=== PATIENT | male | born 1955 | race Caucasian/White ===

== ENCOUNTER 2018-06-01 11:42 | Day surgery (SDC) | payer BC ==
[2018-06-01] MEDS ORDERED: LACTATED RINGERS 1,000 ML IV ONE ×2 (12:40→16:00)
[2018-06-01] MEDS ORDERED: ceFAZolin 1 GM VIAL ONE (13:09)
[2018-06-01] MEDS ORDERED: SODIUM CHLORIDE 0.9% 10 ML ONE ×2 (13:09→15:01)
[2018-06-01] MEDS ORDERED: LIDOCAINE MPF 1%-EPI 1:200000 30 ML VIAL ONE (13:10)
[2018-06-01] MEDS ORDERED: BUPIVACAINE 0.5% PF 30 ML VIAL ONE (13:10)
--- NOTE | 2018-06-01 13:45 | ANESTHESIA ---
Pre-Anesthesia VS, & Labs - Diagnosis umbilical hernia, supra-umbilical ventral hernia - Procedure open umbilical hernia repair, supra-umbilical hernia (ventral) repair with mesh Vital Signs: Temp Pulse Resp BP Pulse Ox 36.2 C L 44 L 20 138/84 H 100 06/01/18 12:20 06/01/18 12:20 06/01/18 12:20 06/01/18 12:20 06/01/18 12:20 Height 6 ft Weight (kg) 82.9 kg - NPO >8 hours Home Medications and Allergies Home Medications: Ambulatory Orders Latanoprost 0.005% Ophth Drops [Xalatan Ophth Drops] 1 drops OP DAILY 06/01/18 Timolol 0.25% Ophth Drops [Timoptic 0.25% Ophth Drops] 1 drops OP DAILY 06/01/18 Latanoprost 0.005% Ophth Drops [Xalatan Ophth Drops] 1 drops OP DAILY 06/01/18 Timolol 0.25% Ophth Drops [Timoptic 0.25% Ophth Drops] 1 drops OP DAILY 06/01/18 Allergies/Adverse Reactions: Allergies Allergy/AdvReac Type Severity Reaction Status Date / Time No Known Drug Allergies Allergy Verified 06/01/18 12:44 Anes History & Medical History - Anesthetic History Anesthesia Complications: reports: No previous complications - Medical History Cardiovascular: reports: None Pulmonary: reports: None Gastrointestinal: reports: None Urinary: reports: None Musculoskeletal: reports: None Endocrine/Autoimmune: reports: None Skin: reports: None - Surgical History General: Colonoscopy Eyes Ears Nose Throat (EENT): Other (retinal detachment surgery) Exam General: Alert Dental: WNL Mouth Opening: Greater than 4 Fingerbreadths Neck Mobility: Normal Mallampati classification: I Thyromental Distance: greater than 6 cm Respiratory: Lungs clear Cardiovascular: Regular rate Mental/Cognitive Status: Alert/Oriented X3 Plan Anesthesia Type: General (backup general), MAC Consent for Procedure(s) Verified and Reviewed: Yes Code Status: Attempt Resuscitation ASA classification: 1-Healthy patient Is this case an emergency?: No
[2018-06-01] MEDS ORDERED: ceFAZolin 2 GM/50 ML 2 GM/50 ML BAG IV ONE (13:51)
[2018-06-01] MEDS ORDERED: BUPIVACAINE 0.5%-EPI 1:200000 PF 30 ML VIAL ONE (14:25)
[2018-06-01] MEDS ORDERED: LIDOCAINE 1% 50 ML MDV ONE (14:57)
[2018-06-01] MEDS ORDERED: ONDANSETRON 4 MG/2 ML VIAL IVP ONE (15:00)
[2018-06-01] MEDS ORDERED: KETOROLAC 30 MG/ML VIAL IVP ONE (15:00)
[2018-06-01] MEDS ORDERED: LIDOCAINE-MPF 2% 5 ML VIAL IM ONE (15:00)
[2018-06-01] MEDS ORDERED: fentaNYL 100 MCG/2 ML VIAL IVP ONE (15:00)
[2018-06-01] MEDS ORDERED: PROPOFOL 200 MG/20 ML VIAL IVP ONE (15:00)
[2018-06-01] MEDS ORDERED: DEXAMETHASONE 4 MG/ML VIAL IVP ONE (15:00)
[2018-06-01] MEDS ORDERED: MIDAZOLAM 2 MG/2 ML VIAL IVP ONE (15:00)
[2018-06-01] MEDS ORDERED: ceFAZolin 1 GM VIAL IR ONE (15:14)
[2018-06-01] MEDS ORDERED: BUPIVACAINE 0.5%-EPI 1:200000 PF 30 ML VIAL SUBQ ONE ×2 (15:15)
[2018-06-01] MEDS ORDERED: LIDOCAINE 1% 50 ML MDV SUBQ ONE (15:46)
--- NOTE | 2018-06-01 16:17 | XRAY Report ---
Reason: NEEDLE/SPONGE COUNT INCORRECT Procedure Date: 06/01/2018 Accession Number: [id number] / [id number] Procedure: XR - Abdomen 1 View X-Ray CPT Code: 99365 FULL RESULT: EXAM: ABDOMEN RADIOGRAPHY EXAM DATE: 06/01/2018 04:12 PM. CLINICAL HISTORY: NEEDLE/SPONGE COUNT INCORRECT. COMPARISON: None. TECHNIQUE: 1 view. FINDINGS: Bowel Gas Pattern: A single image was obtained of the central lower abdomen from the mid L1 level to the lower sacrum. No foreign body seen within this field of view Other: None. IMPRESSION: No foreign body seen within the central lower abdomen RADIA The call report notification system was initiated by Dr. Levi Gramajo at 04:16 PM hrs on 06/01/2018. ADDENDUM: 06/01/18 16:18 The above findings were discussed with Dr. Rodrigo Springer Dr by Dr. Levi Gramajo at 04:18 PM hrs on 06/01/2018.
[2018-06-01] MEDS ORDERED: ACETAMINOPHEN 325 MG TABLET PO PRN (16:20)
[2018-06-01] MEDS ORDERED: oxyCODONE 5 MG TABLET PO PRN (16:20)
[2018-06-01] MEDS ORDERED: ONDANSETRON 4 MG/2 ML VIAL IVP PRN (16:20)
[2018-06-01] MEDS ORDERED: IBUPROFEN 600 MG TABLET PO PRN (16:20)
[2018-06-01] MEDS ORDERED: oxyCODONE 5 MG TABLET ONE (17:00)
[2018-06-01 17:17] VITALS: BP 131/79
--- NOTE | 2018-06-02 03:14 | OPERATIVE REPORT ---
DATE OF SERVICE: 06/01/2018 Physician: Rodrigo Springre MD PREOPERATIVE DIAGNOSES 1. Incarcerated ventral hernia. 2. Reducible umbilical hernia. POSTOPERATIVE DIAGNOSES 1. Incarcerated ventral hernia. 2. Reducible umbilical hernia. PROCEDURE 1. Open repair of incarcerated ventral hernia. 2. Open repair of umbilical hernia with Ventralex ST soft tissue patch. ANESTHESIA: Local plus monitored anesthesia care by Ramses Rosenberg CRNA. SURGEON: Rodrigo Springer MD. GLOBAL LOGISTICS MANAGER: None. ESTIMATED BLOOD LOSS: 10 mL COMPLICATIONS: None. FINDINGS: Two adjacent ventral midline supraumbilical fascial defects were present, measuring 5 mm i n diameter each, through which preperitoneal fat had herniated and become incarcerated, creating a ma ss of approximately 3 to 4 cm in diameter. In addition, an umbilical hernia was present with a fasci al defect of approximately 2 cm and preperitoneal fat present, comprising the hernia sac. INDICATIONS: Patient is a 63-year-old gentleman with recent onset of a mass in the supraumbilical re gion, just off the midline to the left. Examination showed a reducible soft mass consistent with a c hronically incarcerated ventral hernia. He was also noted to have a reducible umbilical hernia. He was interested in having both hernias repaired. TECHNIQUE: After informed consent, patient was taken to the operating room where he was sedated and monitored. Preoperative preparation included administration of 2 grams of cefazolin intravenously an d application of sequential calf compression boots. His abdomen was clipped and prepared with Chlora Prep solution and draped in the usual sterile fashion. A field block was instituted using a 50:50 co mbination of 1% lidocaine plain and 0.5% Marcaine with epinephrine, a total of 30 mL of the mixture w as used. A curvilinear transverse incision was made just above the umbilicus and just caudal to the mass and c arried down through subcutaneous tissues. Hemostasis achieved with electrocautery and 2-0 Vicryl tie s. The umbilical dermis was dissected off the underlying hernia sac and the fascial edges were mobil ized circumferentially around the umbilical fascial defect. The hernia sac was excised and discarded . Dissection in a cephalad manner exposed 2 adjacent midline fascial defects through which preperito yousuf fat had herniated and incarcerated. This tissue was mobilized circumferentially. The anterior fascia was mobilized around the neck of the 2 defects. The tissue was amputated. Hemostasis was ach ieved with electrocautery and 2-0 Vicryl ties and the tissue was discarded. The 2 supraumbilical mid line fascial defects were reapproximated with 2 interrupted 0 Ethibond sutures transversely. The umb ilical defect was repaired by inserting a [address] patch that had been soaked in an tibiotic solution containing 1 gram of cefazolin per liter. It was placed in a preperitoneal positio n and held in place while the fascial edges were reapproximated transversely with interrupted 0 Ethib ond sutures. The sutures incorporated the anchoring strap of the patch. Excess strap was excised an d discarded. After hemostasis was assured, the wound was irrigated with antibiotic solution, following which wound closure was accomplished in layers using interrupted 2-0 Vicryl to reapproximate deep subcutaneous t issues and reapproximate the umbilical dermis to the anterior fascia. Then, 3-0 Vicryl was used to r eapproximate superficial subcutaneous tissues and 4-0 Monocryl completed wound closure with a subcuti cular skin closure, followed by Dermabond. The procedure was then terminated. Sponge counts were co rrect. Needle counts were incorrect by one. A KUB of the abdomen was obtained and no foreign bodies were noted. Anesthesia then terminated, and patient transferred out of the operating room in satisf actory condition. No drains were used. TD: 06/01/2018 16:38
== END 2018-06-01 11:43 | disposition home or self-care (01) ==
LOC: SDS 11:42
PROVIDERS: ATTEND Internal Medicine Gastroenterology
PROC: 0WUF0JZ Supplement Abdominal Wall with Synthetic Substitute, Open Approach (ICD-10-PCS; 2018-06-01)
PROC: 0WQF0ZZ Repair Abdominal Wall, Open Approach (ICD-10-PCS; principal; 2018-06-01 12:45)
DX: K43.6 Other and unspecified ventral hernia with obstruction, without gangrene (principal); K42.9 Umbilical hernia without obstruction or gangrene; J31.0 Chronic rhinitis
CPT/HCPCS: 49561; 49585; 74018; A9270; C1781; J0690; J7120

== ENCOUNTER 2020-02-12 08:00 | Outpatient (CLI) | payer BC ==
--- NOTE | 2020-02-12 14:14 | XRAY Report ---
PROCEDURE: Chest 2 View X-Ray INDICATIONS: WHEEZING TECHNIQUE: 2 view(s) of the chest. COMPARISON: None. FINDINGS: Surgical changes and devices: None. Lungs and pleura: No pleural effusions or pneumothorax. Lungs are clear. Mediastinum: Mediastinal contours are normal. Heart size is normal. Bones and chest wall: No suspicious bony abnormalities. Soft tissues appear unremarkable. IMPRESSION: Chest without acute cardiopulmonary abnormalities or focal airspace disease. Reviewed by: Bhavik Coats MD on 02/12/2020 2:12 PM PDT Approved by: Bhavik Coats MD on 02/12/2020 2:12 PM PDT Station ID: [id number]
== END 2020-02-12 23:59 | disposition home or self-care (01) ==
LOC: DI.S 08:00
PROVIDERS: ATTEND Physician Assistant
DX: R06.2 Wheezing (principal); Z20.828 Contact with and (suspected) exposure to other viral communicable diseases
CPT/HCPCS: 71046

== ENCOUNTER 2020-02-12 08:00 | Outpatient (CLI) | payer BC | END 2020-02-12 23:59 | disposition home or self-care (01) | LOC: LAB.R 08:00 | PROVIDERS: ATTEND Physician Assistant | DX: R06.2 Wheezing (principal); Z20.828 Contact with and (suspected) exposure to other viral communicable diseases ==

== ENCOUNTER 2020-05-18 11:30 | Outpatient (CLI) | payer BC ==
[2020-05-18 11:44] LABS: BASOPHILS % (AUTO) 0.7 %; EOSINOPHILS # (AUTO) 0.6 10^3/uL (0.0-0.7); EOSINOPHILS % (AUTO) 10.1 %; HGB - HEMOGLOBIN 15.7 g/dL (14.0-18.0); LYMPHOCYTES # (AUTO) 1.9 10^3/uL (1.5-3.5); LYMPHOCYTES % (AUTO) 31.7 %; MEAN CORPUSCULAR HEMOGLOBIN 32.3 pg (27.0-31.0); MEAN CORPUSCULAR HGB CONC 34.7 g/dL (32.0-36.0); MEAN PLATELET VOLUME 9.2 fL (7.4-11.4); MONOCYTES # (AUTO) 0.7 10^3/uL (0.0-1.0); MONOCYTES % (AUTO) 11.5 %; NEUTROPHILS # (AUTO) 2.7 10^3/uL (1.5-6.6); NEUTROPHILS % (AUTO) 45.8 %; PLT - PLATELET COUNT 207 10^3/uL (130-450); RED BLOOD COUNT 4.86 10^6/uL (4.70-6.10); RED CELL DISTRIBUTION WIDTH 11.9 % (12.0-15.0); WHITE BLOOD COUNT 5.8 x10^3/uL (4.8-10.8)
[2020-05-18 11:58] LABS: ALBUMIN 4.3 g/dL (3.2-5.5); ALBUMIN/GLOBULIN RATIO 1.4 (1.0-2.2); CALCIUM 9.4 mg/dL (8.5-10.3); CREATININE 0.9 mg/dL (0.6-1.2); TOTAL PROTEIN 7.3 g/dL (6.7-8.2)
== END 2020-05-18 11:31 | disposition home or self-care (01) ==
LOC: LAB 11:30
PROVIDERS: ATTEND Otolaryngology Otolaryngology/Facial Plastic Surgery
DX: Z01.812 Encounter for preprocedural laboratory examination (principal)
CPT/HCPCS: 36415; 80053; 85025

== ENCOUNTER 2020-05-18 15:07 | Outpatient (CLI) | payer BC | END 2020-05-18 15:08 | disposition home or self-care (01) | LOC: RT 15:07 | PROVIDERS: ATTEND Otolaryngology Otolaryngology/Facial Plastic Surgery | DX: Z01.818 Encounter for other preprocedural examination (principal); J34.2 Deviated nasal septum | CPT/HCPCS: 36415; 80053; 85025; 93005 ==

== ENCOUNTER 2022-02-25 08:00 | Outpatient (CLI) | payer BC ==
--- NOTE | 2022-02-25 16:38 | XRAY Report ---
PROCEDURE: Chest 2 View X-Ray INDICATIONS: COUGH TECHNIQUE: 2 view(s) of the chest. COMPARISON: None. FINDINGS: Surgical changes and devices: None. Lungs and pleura: No pleural effusions or pneumothorax. Lungs are clear. Mediastinum: Mediastinal contours are normal. Heart size is normal. Bones and chest wall: No suspicious bony abnormalities. Soft tissues appear unremarkable. IMPRESSION: No acute cardiopulmonary pathology. Reviewed by: Velasquez Menard MD on 02/25/2022 4:37 PM PDT Approved by: Velasquez Menard MD on 02/25/2022 4:37 PM PDT Station ID: [id number]
== END 2022-02-25 23:59 | disposition home or self-care (01) ==
LOC: DI.S 08:00
PROVIDERS: ATTEND Physician Assistant
DX: R05.9 Cough, unspecified (principal)

== ENCOUNTER 2022-03-08 07:36 | Day surgery (SDC) | payer BC ==
[~2022-03-08 07:36] MED LIST: CEFAZOLIN 2G/50ML 0.9% NS 2 GM/50 ML BAG IV ONE
[2022-03-08] MEDS ORDERED: LACTATED RINGERS 1,000 ML IV ONE ×3 (07:53→11:00)
[2022-03-08] MEDS ORDERED: BUPIVACAINE 0.25% PF 10 ML VIAL ONE (08:37)
[2022-03-08] MEDS ORDERED: LIDOCAINE 1% 50 ML MDV ONE (08:37)
[2022-03-08] MEDS ORDERED: PROPOFOL 500 MG/50 ML 500 MG/50 ML VIAL ONE (09:18)
[2022-03-08] MEDS ORDERED: PROPOFOL 200 MG/20 ML VIAL IVP ONE (09:20)
--- NOTE | 2022-03-08 09:20 | ANESTHESIA ---
Pre-Anesthesia VS, & Labs - Diagnosis inguinal hernia - Procedure inguinal hernia repair Vital Signs: Temp Pulse Resp BP Pulse Ox O2 Flow Rate 36.4 C L 64 20 159/83 H 100 03/08/22 07:54 03/08/22 07:54 03/08/22 07:54 03/08/22 07:54 03/08/22 07:54 Height: 6 ft Weight (kg): 78 kg Body Mass Index: 23.3 BMI Classification: Normal - NPO >8 hours Home Medications and Allergies Home Medications: Ambulatory Orders Budesonide/Formoterol Fumarate [Symbicort 160-4.5 Mcg Inhaler] 1 puffs IH DAILY 03/08/22 Latanoprost 0.005% Ophth Drops [Xalatan Ophth Drops] 1 drops EACHEYE QPM 06/01/18 Timolol 0.25% Ophth Drops [Timoptic 0.25% Ophth Drops] 1 drops EACHEYE BID 06/01/18 Budesonide/Formoterol Fumarate [Symbicort 160-4.5 Mcg Inhaler] 1 puffs IH DAILY 03/08/22 Allergies/Adverse Reactions: Allergies Allergy/AdvReac Type Severity Reaction Status Date / Time No Known Drug Allergies Allergy Verified 06/01/18 12:44 Anes History & Medical History - Anesthetic History Anesthesia Complications: reports: No previous complications, Difficult airway Family history of Anesthesia Complications: Denies Family history of Malignant Hyperthermia: Denies - Medical History Cardiovascular: reports: None Pulmonary: reports: None Gastrointestinal: reports: None Urinary: reports: None Musculoskeletal: reports: Other Endocrine/Autoimmune: reports: None Skin: reports: Eczema - Surgical History General: reports: Colonoscopy Eyes Ears Nose Throat (EENT): reports: Cataracts, Detached retina repair, Other Exam General: Alert, Oriented x3, Cooperative Dental: WNL Mouth Openin Fingerbreadth Neck Mobility: Normal Mallampati classification: II Respiratory: Lungs clear Cardiovascular: Regular rate Plan Anesthesia Type: Total IV Consent for Procedure(s) Verified and Reviewed: Yes Code Status: Attempt Resuscitation ASA classification: 2-Mild systemic disease Is this case an emergency?: No
[2022-03-08] MEDS ORDERED: DEXAMETHASONE 4 MG/ML VIAL ONE (09:23)
[2022-03-08] MEDS ORDERED: ONDANSETRON 4 MG/2 ML VIAL ONE (09:23)
[2022-03-08] MEDS ORDERED: fentaNYL 100 MCG/2 ML VIAL ONE (09:23)
[2022-03-08] MEDS ORDERED: MIDAZOLAM 2 MG/2 ML VIAL ONE (09:23)
[2022-03-08] MEDS ORDERED: BUPIVACAINE 0.25% PF 10 ML VIAL SUBQ ONE (10:05)
[2022-03-08] MEDS ORDERED: LIDOCAINE 1% 50 ML MDV SUBQ ONE (10:05)
[2022-03-08] MEDS ORDERED: HYDROcod/ACETAM 5/325 MG TABLET PO PRN (11:04)
[2022-03-08 11:33] VITALS: BP 120/83
--- NOTE | 2022-03-08 13:06 | ANESTHESIA POST OP EVALUATION ---
Anesthesia Post Eval - Post Anesthesia Eval Vitals: Last Vital Signs Temp 37 C 03/08/22 11:32 Pulse 53 L 03/08/22 11:32 Resp 12 03/08/22 11:32 BP 120/83 H 03/08/22 11:32 Pulse Ox 98 03/08/22 11:32 O2 Flow Rate CV Function Including HR & BP: Stable Pain Control: Satisfactory Nausea & Vomiting: Negative Mental Status: Baseline Respiratory Status: Airway Patent Hydration Status: Satisfactory Anesthesia Complications: None
--- NOTE | 2022-03-08 16:06 | OPERATIVE REPORT ---
Operative Report - General Procedure Date: 03/08/22 Planned Procedure: open left inguinal hernia repair with mesh Pre-Op Diagnosis: left inguinal hernia Procedure Performed: open left inguinal hernia repair with mesh Post Op Diagnosis: indirect inguinal hernia - Procedure Note Primary Surgeon: dannie mitchell Anesthesia Technique: Local, MAC Pathology: not sent Estimated Blood Loss (mL): 2 Drain/Tube Type: Other (none) Indications: painful hernia bulge Findings: as above Complications: none - Other Other Information/Narrative: Patient was properly identified brought to the operating room and placed in supine position. Sequential compression devices were placed. Mpnitored anesthesia care was given. He was prepped and draped in a sterile fashion and given preoperative antibiotics. Local anesthetic was given throughout the procedure. A 5 cm incision was made in the direction of Mally's lines just cephalad of the pubic tubercle. Dissection proceeded with cutting current cautery. The superficial epigastric vein was identified clamped divided and tied with 3-0 Vicryl. Dissection proceeded down to the aponeurosis. The aponeurosis was opened in the direction of its fibers and extended to the external ring. Cord structures were mobilized and brought up. The nerves were carefully protected and preserved. Cord structures were mobilized and brought up. An indirect inguinal hernia was present. The hernia sac was mobilized off the cord structures and suture ligated with 2 O silk and further reduced. Preperitoneal fat was removed. The base was tied with 2 O vicryl. Polypropylene mesh was cut to size and with tails. The mesh was secured with multiple interrupted 0 Ethibond sutures. She was placed along the pubic tubercle, Luis's ligament area and along the shelving border of Poupart's ligament. Sutures were placed medially along the abdominal wall musculature and internal oblique. The medial tail of the mesh was secured to the shelving border of Poupart's ligament with 3 interrupted 0 ethibond sutures recreating the internal ring of appropriate size. An additional suture was placed in the crotch of the mesh recreating an internal ring of appropriate size. Aponeurosis was closed with a running 2-0 Vicryl suture. The opposite was closed with interrupted 3-0 Vicryl suture. Buried interrupted subdermal 3-0 Vicryl sutures were then placed. And was closed with a running 4-0 Monocryl subcuticular suture. Dressing was applied. Patient was awakened and brought to recovery in good condition.
--- NOTE | 2022-03-08 16:15 | OPERATIVE REPORT ---
Operative Report - General Planned Procedure: open left inguinal hernia repair Pre-Op Diagnosis: left inguinal hernia Procedure Performed: open left inguinal hernia repair with mesh Post Op Diagnosis: left inguinal hernia, indirect - Procedure Note Primary Surgeon: dannie mitchell Anesthesia Technique: Local, MAC Pathology: not sent Estimated Blood Loss (mL): 2 Drain/Tube Type: Other (none) Indications: painful hernia Findings: as above Complications: none - Other Other Information/Narrative: Inguinal hernia patient was properly identified brought to the operating room and placed in supine position. Sequential compression devices were placed. Monitored anesthesia care was given. He was prepped and draped in a sterile fashion and given preoperative antibiotics. Local anesthetic was given throughout the procedure. A 5 cm incision was made in the direction of Mally's lines just cephalad of the pubic tubercle. Dissection proceeded with cutting current cautery. The superficial epigastric vein was identified clamped divided and tied with 3-0 Vicryl. Dissection proceeded down to the aponeurosis. The aponeurosis was opened in the direction of its fibers and extended to the external ring. Cord structures were mobilized and brought up. The nerves were carefully protected and preserved. Cord structures were mobilized and brought up. An indirect inguinal hernia was present. The hernia sac was mobilized off the cord structures and suture ligated with 2 O silk and further reduced. Preperitoneal fat was removed. The base was tied with 2 O vicryl. Polypro pylene mesh was cut to size and with tails. The mesh was secured with multiple interrupted 0 Ethibond sutures. She was placed along the pubic tubercle, Luis's ligament area and along the shelving border of Poupart's ligament. Sutures were placed medially along the abdominal wall musculature and internal oblique. The medial tail of the mesh was secured to the shelving border of Poupart's ligament with 3 interrupted 0 ethibond sutures recreating the internal ring of appropriate size. An additional suture was placed in the crotch of the mesh recreating an internal ring of appropriate size. Aponeurosis was closed with a running 2-0 Vicryl suture. The opposite was closed with interrupted 3-0 Vicryl suture. Buried interrupted subdermal 3-0 Vicryl sutures were then placed. And was closed with a running 4-0 Monocryl subcuticular suture. Dressing was applied. Patient was awakened and brought to recovery in good condition.
== END 2022-03-08 07:37 | disposition home or self-care (01) ==
LOC: SDS 07:36
PROVIDERS: ATTEND Surgery
DX: K40.90 Unilateral inguinal hernia, without obstruction or gangrene, not specified as recurrent (principal)
CPT/HCPCS: 49505; C1781; J0690; J7120

== ENCOUNTER 2022-03-11 17:42 | Emergency (ER) | payer BC ==
--- OUTSIDE RECORDS SUMMARY | 2022-03-11 17:56 | EXTERNAL MEDICAL SUMMARY RPT | Continuity of Care Document ---
:1955 Author Organization [facility] Address [address] [place] [address] Phone Care Team Providers Name Role Phone Unavailable Unavailable Unavailable Leonardo Spear Md Unavailable Unavailable Sary Garcia, Jann Unavailable Unavailable Layne, Provider Unavailable Unavailable Elroy Krause, Referrals, Alicia Unavailable Unavailable Alejandra Pérez Ma Unavailable Unavailable Alejandra Pérez Ma Unavailable Unavailable Allergies No information. Encounters No information. Functional Status No information. Immunizations No information. Medications date description facility [id number]+0000 budesonide-formoterol [facility] [id number]+0000 budesonide-formoterol [facility] [id number]+0000 budesonide-formoterol [facility] neg[place] [phone]+0000 budesonide-formoterol [facility] negin [id number]+0000 budesonide-formoterol [facility] neg[place] [phone]+0000 budesonide-formoterol [facility] neg[place] [phone]+0000 ondansetron [facility] C neg[place] [phone]+0000 ondansetron [facility] negin [phone]+0000 ondansetron [facility] negin [phone]+0000 ondansetron [facility] negin [phone]+0000 ondansetron [facility] negin [phone]+0000 ondansetron [facility] C negin [phone]+0000 azithromycin [facility] neg[place] [phone]+0000 azithromycin [facility] C negin [phone]+0000 azithromycin [facility] C negin [phone]+0000 azithromycin [facility] C negin [phone]+0000 azithromycin [facility] negin [phone]+0000 ondansetron [facility] neg[facility] [phone]+0000 ondansetron [facility] neg[facility] [phone]+0000 ondansetron [facility] neg[facility] [id number]+0000 ondansetron [facility] negin [id number]+0000 ondansetron [facility] neg[facility] [phone]+0000 ondansetron [facility] negin [phone]+0000 budesonide-formoterol [facility] neg[facility] [phone]+0000 budesonide-formoterol [facility] negin [id number]+0000 budesonide-formoterol [facility] negin [phone]+0000 budesonide-formoterol [facility] negin [id number]+0000 budesonide-formoterol [facility] neg[facility] [phone]+0000 budesonide-formoterol [facility] negin [phone]+0000 budesonide-formoterol [facility] neg[place] [phone]+0000 budesonide-formoterol [facility] negin [phone]+0000 budesonide-formoterol [facility] negin [phone]+0000 budesonide-formoterol [facility] negin [phone]+0000 budesonide-formoterol [facility] C negin [phone]+0000 budesonide-formoterol [facility] C negin [phone]+0000 benzonatate [facility] C negin [phone]+0000 benzonatate [facility] C negin [phone]+0000 benzonatate [facility] C negin [phone]+0000 benzonatate [facility] negin [phone]+0000 benzonatate [facility] C negin [id number]+0000 benzonatate [facility] negin [phone]+0000 benzonatate [facility] C negin [phone]+0000 benzonatate [facility] C negin [id number]+0000 benzonatate [facility] C negin [phone]+0000 benzonatate [facility] C negin [phone]+0000 azithromycin [facility] C negin [phone]+0000 azithromycin [facility] C negin [phone]+0000 azithromycin [facility] C negin [phone]+0000 azithromycin [facility] C negin [phone]+0000 azithromycin [facility] C negin [phone]+0000 DEXAMETHASONE SODIUM PHOSPHATE [facility] C negin [phone]+0000 DEXAMETHASONE SODIUM PHOSPHATE [facility] negin [phone]+0000 DEXAMETHASONE SODIUM PHOSPHATE [facility] C negin [phone]+0000 DEXAMETHASONE SODIUM PHOSPHATE [facility] C negin [phone]+0000 DEXAMETHASONE SODIUM PHOSPHATE [facility] C negin [phone]+0000 benzonatate [facility] C negin [phone]+0000 benzonatate [facility] C negin [phone]+0000 benzonatate [facility] C negin [phone]+0000 benzonatate [facility] C negin [phone]+0000 benzonatate [facility] negin [id number]+0000 budesonide-formoterol [facility] C negin [phone]+0000 budesonide-formoterol [facility] C negin [phone]+0000 budesonide-formoterol [facility] C negin [phone]+0000 budesonide-formoterol [facility] negin [phone]+0000 budesonide-formoterol [facility] negin [phone]+0000 budesonide-formoterol [facility] negin [phone]+0000 ondansetron [facility] C negin [phone]+0000 ondansetron [facility] C negin [phone]+0000 ondansetron [facility] C negin [id number]+0000 ondansetron [facility] C negin [phone]+0000 ondansetron [facility] C negin [phone]+0000 ondansetron [facility] negin [phone]+0000 azithromycin [facility] negin [phone]+0000 azithromycin [facility] C negin [phone]+0000 azithromycin [facility] C negin [phone]+0000 azithromycin [facility] C negin [phone]+0000 azithromycin [facility] C negin [phone]+0000 azithromycin [facility] C negin [phone]+0000 azithromycin [facility] C negin [phone]+0000 azithromycin [facility] C negin [phone]+0000 azithromycin [facility] C negin [phone]+0000 azithromycin [facility] C negin [phone]+0000 ondansetron [facility] negin [phone]+0000 ondansetron [facility] C negin [phone]+0000 ondansetron [facility] C negin [phone]+0000 ondansetron [facility] C negin [phone]+0000 ondansetron [facility] C negin [phone]+0000 ondansetron [facility] C negin [phone]+0000 benzonatate [facility] C negin [phone]+0000 benzonatate [facility] C negin [phone]+0000 benzonatate [facility] C negin [phone]+0000 benzonatate [facility] C negin [phone]+0000 benzonatate [facility] C negin Problems No information. Procedures date description facility [id number]+0000 Visit Code Hold [facility] neg[facility] [phone]+0000 Visit Code Hold [facility] C negin [phone]+0000 Visit Code Hold [facility] C negin [phone]+0000 Visit Code Hold [facility] C negin [phone]+0000 Visit Code Hold [facility] C negin [phone]+0000 Visit Code Hold [facility] Tyler kam [phone]+0000 Visit Code Hold [facility] C negin [phone]+0000 Visit Code Hold [facility] C negin [phone]+0000 Visit Code Hold [facility] negin [phone]+0000 Visit Code Hold [facility] C negin [phone]+0000 Visit Code Hold [facility] C negin [phone]+0000 Visit Code Hold [facility] C negin [phone]+0000 Visit Code Hold [facility] C negin [phone]+0000 Visit Code Hold [facility] [place] kam [phone]+0000 COVID, FLU A+B Antigen (In [facility] Free Test) Ancillary Services [place] kam [phone]+0000 COVID, FLU A+B Antigen (In [facility] Free Test) [facility] [place] kam [phone]+0000 COVID, FLU A+B Antigen (In [facility] Free Test) [facility] [place] kam [phone]+0000 COVID, FLU A+B Antigen (In [facility] Free Test) [facility] [place] kam [phone]+0000 COVID, FLU A+B Antigen (In [facility] Free Test) [facility] [place] kam [phone]+0000 COVID, FLU A+B Antigen (In [facility] Free Test) [facility] [place] kam [phone]+0000 COVID, FLU A+B Antigen (In [facility] Free Test) [facility] [place] kam [phone]+0000 COVID, FLU A+B Antigen (In [facility] Free Test) [facility] [place] kam [phone]+0000 COVID, FLU A+B Antigen (In [facility] Free Test) [facility]illary Services C negin [phone]+0000 COVID, FLU A+B Antigen (In [facility] Free Test) [facility]illary Services C negin [phone]+0000 COVID, FLU A+B Antigen (In [facility] Free Test) Ancillary Services C christiana Results/Labs No information. Social History date description facility [id number]+0000 Never smoker [facility] Monster [phone]+0000 Never smoker [facility] [id number]+0000 Never smoker [facility] [phone]+0000 Never smoker [facility] [id number]+0000 Never smoker [facility] [phone]+0000 Never smoker [facility] [phone]+0000 Never smoker [facility] [phone]+0000 Never smoker [facility] [phone]+0000 Never smoker [facility] [phone]+0000 Never smoker [facility] [phone]+0000 Never smoker [facility] Vital Signs date measurement value units [id number]+0000 BMI BMI 24.61 kg/m2 [id number]+0000 BP_diastolic BP_diastolic 85 mmHg [id number]+0000 BP_systolic BP_systolic 141 mmHg [id number]+0000 heart_rate heart_rate 65 /min [id number]+0000 height_metric height_metric 179.71 cm [id number]+0000 height_standard height_standard 70.75 in [id number]+0000 respiration_rate respiration_rate 19 /min [id number]+0000 temperature_metric temperature_metric 36.94 C [id number]+0000 temperature_standard temperature_standard 9 8.5 F [id number]+0000 weight_metric weight_metric 79.2 kg [id number]+0000 weight_standard weight_standard 174.6 lb [id number]+0000 BMI BMI 24.39 kg/m2 [id number]+0000 BP_diastolic BP_diastolic 85 mmHg [id number]+0000 BP_systolic BP_systolic 164 mmHg [id number]+0000 heart_rate heart_rate 64 /min [id number]+0000 height_metric height_metric 179.71 cm [id number]+0000 height_standard height_standard 70.75 in [id number]+0000 respiration_rate respiration_rate 17 /min [id number]+0000 temperature_metric temperature_metric 36.44 C [id number]+0000 temperature_standard temperature_standard 9 7.6 F [id number]+0000 weight_metric weight_metric 78.47 kg [id number]+0000 weight_standard weight_standard 173 lb [id number]+0000 BMI BMI 24.36 kg/m2 [id number]+0000 BP_diastolic BP_diastolic 76 mmHg [id number]+0000 BP_systolic BP_systolic 153 mmHg [id number]+0000 heart_rate heart_rate 57 /min [id number]+0000 height_metric height_metric 179.71 cm [id number]+0000 height_standard height_standard 70.75 in [id number]+0000 respiration_rate respiration_rate 16 /min [id number]+0000 temperature_metric temperature_metric 36.17 C [id number]+0000 temperature_standard temperature_standard 9 7.1 F [id number]+0000 weight_metric weight_metric 78.38 kg [id number]+0000 weight_standard weight_standard 172.8 lb
[2022-03-11 21:15] LABS: BASOPHILS # (AUTO) 0.1 10^3/uL (0.0-0.1); BASOPHILS % (AUTO) 0.5 %; EOSINOPHILS # (AUTO) 0.2 10^3/uL (0.0-0.7); EOSINOPHILS % (AUTO) 1.8 %; HCT - HEMATOCRIT 44.6 % (42.0-52.0); HGB - HEMOGLOBIN 15.3 g/dL (14.0-18.0); LYMPHOCYTES # (AUTO) 1.7 10^3/uL (1.5-3.5); LYMPHOCYTES % (AUTO) 15.5 %; MEAN CORPUSCULAR HEMOGLOBIN 31.4 pg (27.0-31.0); MEAN CORPUSCULAR HGB CONC 34.3 g/dL (32.0-36.0); MEAN CORPUSCULAR VOLUME 91.4 fL (80.0-94.0); MONOCYTES # (AUTO) 0.9 10^3/uL (0.0-1.0); MONOCYTES % (AUTO) 8.2 %; NEUTROPHILS % (AUTO) 73.7 %; PLT - PLATELET COUNT 196 10^3/uL (130-450); RED BLOOD COUNT 4.88 10^6/uL (4.70-6.10); RED CELL DISTRIBUTION WIDTH 12.6 % (12.0-15.0); WHITE BLOOD COUNT 10.8 x10^3/uL (4.8-10.8)
[2022-03-11 21:30] LABS: ALBUMIN 3.9 g/dL (3.2-5.5); ALBUMIN/GLOBULIN RATIO 1.3 (1.0-2.2); BILIRUBIN,TOTAL 0.9 mg/dL (0.2-1.0); CALCIUM 9.1 mg/dL (8.5-10.3); CREATININE 0.7 mg/dL (0.6-1.2); POTASSIUM 4.3 mmol/L (3.5-5.0); TOTAL PROTEIN 6.9 g/dL (6.7-8.2)
--- NOTE | 2022-03-12 01:58 | ED Physician Documentation ---
History of Present Illness - Stated complaint Stated Complaint: CONSTIPATION - Chief complaint Chief Complaint: Abd Pain - History obtained from History obtained from: Patient - Additonal information Additional information: 66yM presents s/p hernia repair surgery friday with subsequent inability to have normal BM. he has been on pain medication and stool regimen (softener and laxative) but has had only small amount of soft brown mushy stool come out. denies abdominal pain, urinary sx, fever. Review of Systems Ten Systems: 10 systems reviewed and negative Constitutional: denies: Fever GI: reports: Constipation. denies: Abdominal Pain, Nausea, Vomiting, Diarrhea, Bloody / black stool : denies: Dysuria PD PAST MEDICAL HISTORY - Past Medical History Past Medical History: Yes Cardiovascular: None Respiratory: None Endocrine/Autoimmune: None GI: None : None HEENT: Chronic vision loss, Glaucoma, Chronic sinusitis Psych: None Musculoskeletal: Other Derm: Eczema - Past Surgical History Past Surgical History: Yes General: Colonoscopy HEENT: Cataracts, Detached retina repair, Other - Present Medications Home Medications: Ambulatory Orders Medication Instructions Recorded Confirmed Latanoprost 0.005% Ophth Drops 1 drops EACHEYE QPM 06/01/18 03/07/22 [Xalatan Ophth Drops] Timolol 0.25% Ophth Drops 1 drops EACHEYE BID 06/01/18 03/07/22 [Timoptic 0.25% Ophth Drops] Budesonide/Formoterol Fumarate 1 puffs IH DAILY 03/08/22 03/08/22 [Symbicort 160-4.5 Mcg Inhaler] HYDROcod/ACETAM 5/325 [[place] 5/325] 1 each PO Q6H PRN #30 tablet 03/08/22 Mineral Oil [Mineral Oil Enema] 1 ea RC QDBREAKFAST PRN 10 Days 03/12/22 #133 ml - Allergies Allergies/Adverse Reactions: Allergies Allergy/AdvReac Type Severity Reaction Status Date / Time No Known Drug Allergies Allergy Verified 06/01/18 12:44 - Social History Does the pt smoke?: No Smoking Status: Never smoker Does the pt drink ETOH?: No Does the pt have substance abuse?: No - Immunizations Immunizations are current?: Yes PD ED PE NORMAL - Vitals Vital signs reviewed: Yes - General General: Alert and oriented X 3, No acute distress, Well developed/nourished - HEENT HEENT: Atraumatic, EOMI - Abdomen Abdomen: Non tender, Non distended - Rectal Rectal: Other (external and internal nonthrombosed hemorrhoids. soft brown stool in rectal vault. enema instilled) Results - Vitals Vitals: Vital Signs - 24 hr 03/11/22 03/11/22 03/12/22 17:50 23:18 01:00 Temperature 36.9 C 36.8 C Heart Rate 65 66 62 Respiratory 16 16 16 Rate Blood Pressure 163/82 H 163/92 H 155/89 H O2 Saturation 97 99 98 03/12/22 03/12/22 03:00 05:00 Temperature Heart Rate 61 62 Respiratory 16 16 Rate Blood Pressure 148/82 H 142/80 H O2 Saturation 98 97 Oxygen O2 Source Room air - Labs Labs: Laboratory Tests 03/11/22 03/11/22 21:05 21:05 WBC 10.8 RBC 4.88 Hgb 15.3 Hct 44.6 MCV 91.4 MCH 31.4 H MCHC 34.3 RDW 12.6 Plt Count 196 MPV 9.0 Neut # (Auto) 8.0 H Lymph # (Auto) 1.7 [place] # (Auto) 0.9 Eos # (Auto) 0.2 Baso # (Auto) 0.1 Absolute Nucleated RBC 0.00 Nucleated RBC % 0.0 Sodium 132 L Potassium 4.3 Chloride 96 L Carbon Dioxide 27 Anion Gap 9.0 BUN 16 Creatinine 0.7 Estimated GFR (MDRD) 112 Glucose 136 H Calcium 9.1 Total Bilirubin 0.9 AST 31 ALT 36 Alkaline Phosphatase 44 Total Protein 6.9 Albumin 3.9 Globulin 3.0 Albumin/Globulin Ratio 1.3 Lipase 29 PD MEDICAL DECISION MAKING - ED course ED course: 66yM presents s/p hernia repair surgery friday with subsequent inability to have normal BM. he has been on pain medication and stool regimen (softener and laxative) but has had only small amount of soft brown mushy stool come out. denies abdominal pain, urinary sx, fever. MERRY reveals brown stool. internal and external nonthrombosed hemorrhoids. Mineral oil enema instilled. will reevaluate. patient states enema helped and he had a bowel movement in the bathroom. rx for mineral oil enema sent to [facility]. return precautions given. f/u with his surgeon and pcp. Departure - Departure Disposition: 01 Home, Self Care Clinical Impression: Constipation Condition: Good Instructions: ED Constipation Prescriptions: Mineral Oil [Mineral Oil Enema] 1 ea RC QDBREAKFAST PRN 10 Days #133 ml PRN Reason: Constipation Comments: You were seen in the ED for constipation and given a mineral oil enema. Please follow up in surgery clinic and also with your primary care provider. continue taking daily stool softener and laxative. A script for the enema was sent to [facility] in [place]. return to the ED if you have other concerns.
[2022-03-12 05:34] VITALS: BP 144/79
== END 2022-03-12 05:34 | disposition home or self-care (01) ==
LOC: ED 17:42
DX: K59.00 Constipation, unspecified (principal)
CPT/HCPCS: 36415; 80053; 83690; 85025; 99283